=== PATIENT | female | born 1945 | race Caucasian/White ===

== ENCOUNTER 2018-09-28 09:22 | Outpatient (CLI) | payer MEDICARE | END 2018-09-28 09:23 | disposition home or self-care (01) | LOC: BICMAMMO 09:22 | PROVIDERS: ATTEND Obstetrics & Gynecology | DX: Z12.31 Encounter for screening mammogram for malignant neoplasm of breast (principal); Z98.82 Breast implant status | CPT/HCPCS: 77063; 77067 ==

== ENCOUNTER 2020-12-19 10:28 | Outpatient (CLI) | payer MEDICARE, OTHER | END 2020-12-19 10:29 | disposition home or self-care (01) | LOC: BICMAMMO 10:28 | PROVIDERS: ATTEND Physician Assistant | DX: Z13.820 Encounter for screening for osteoporosis (principal); Z78.0 Asymptomatic menopausal state | CPT/HCPCS: 77080 ==